=== PATIENT | female | born 1930 ===

== ENCOUNTER 2021-08-21 00:19 | Day surgery (SDC) | payer MEDICARE, OTHER ==
[~2021-08-21 00:19] MED LIST: ALBU2.5V5 INH; AMLO5 PO; ASPI81CH PO; BUSPIRONE HCL7.5 M1 PO; FERSU300 PO; IPRAT-ALBUT 0.5-3 ML INH; SPIR25 PO
== END 2021-08-21 12:07 | disposition home or self-care (01) ==
LOC: ATC 00:19
DX: D50.9 Iron deficiency anemia, unspecified (principal); Z88.8 Allergy status to other drugs, medicaments and biological substances
CPT/HCPCS: 96365; J2916

== ENCOUNTER 2021-09-04 00:30 | Day surgery (SDC) | payer MEDICARE, OTHER | END 2021-09-04 11:53 | disposition home or self-care (01) | LOC: ATC 00:30 | DX: D50.9 Iron deficiency anemia, unspecified (principal); F17.210 Nicotine dependence, cigarettes, uncomplicated; J44.9 Chronic obstructive pulmonary disease, unspecified; K21.9 Gastro-esophageal reflux disease without esophagitis; E78.5 Hyperlipidemia, unspecified; I10 Essential (primary) hypertension; Z86.12 Personal history of poliomyelitis; Z88.0 Allergy status to penicillin; Z88.7 Allergy status to serum and vaccine; Z88.8 Allergy status to other drugs, medicaments and biological substances; Z91.81 History of falling | CPT/HCPCS: 96365; J2916 ==

== ENCOUNTER 2021-09-18 00:52 | Day surgery (SDC) | payer MEDICARE, OTHER | END 2021-09-18 11:49 | disposition home or self-care (01) | LOC: ATC 00:52 | DX: D50.9 Iron deficiency anemia, unspecified (principal); F17.210 Nicotine dependence, cigarettes, uncomplicated; J44.9 Chronic obstructive pulmonary disease, unspecified; K21.9 Gastro-esophageal reflux disease without esophagitis; E78.5 Hyperlipidemia, unspecified; I10 Essential (primary) hypertension; Z86.12 Personal history of poliomyelitis; Z88.0 Allergy status to penicillin; Z88.7 Allergy status to serum and vaccine; Z88.8 Allergy status to other drugs, medicaments and biological substances | CPT/HCPCS: 96365; J2916 ==

== ENCOUNTER 2021-10-02 01:33 | Day surgery (SDC) | payer MEDICARE, OTHER | END 2021-10-02 11:55 | disposition home or self-care (01) | LOC: ATC 01:33 | DX: D50.9 Iron deficiency anemia, unspecified (principal); Z88.8 Allergy status to other drugs, medicaments and biological substances; Z79.82 Long term (current) use of aspirin; Z88.0 Allergy status to penicillin; Z88.6 Allergy status to analgesic agent | CPT/HCPCS: 96365; J2916 ==

== ENCOUNTER 2022-01-26 03:33 | Day surgery (SDC) | payer MEDICARE, OTHER | END 2022-01-26 11:50 | disposition home or self-care (01) | LOC: ATC 03:33 | DX: D50.9 Iron deficiency anemia, unspecified (principal); I10 Essential (primary) hypertension; E78.5 Hyperlipidemia, unspecified; J44.9 Chronic obstructive pulmonary disease, unspecified; R73.03 Prediabetes; K21.9 Gastro-esophageal reflux disease without esophagitis; F17.200 Nicotine dependence, unspecified, uncomplicated; Z88.0 Allergy status to penicillin; Z79.82 Long term (current) use of aspirin; Z79.899 Other long term (current) drug therapy | CPT/HCPCS: 96365; J2916 ==

== ENCOUNTER 2022-02-05 02:47 | Day surgery (SDC) | payer MEDICARE, OTHER | END 2022-02-05 11:39 | disposition home or self-care (01) | LOC: ATC 02:47 | DX: D50.9 Iron deficiency anemia, unspecified (principal); J44.9 Chronic obstructive pulmonary disease, unspecified; I10 Essential (primary) hypertension; K21.9 Gastro-esophageal reflux disease without esophagitis; R73.03 Prediabetes; Z88.0 Allergy status to penicillin; Z88.8 Allergy status to other drugs, medicaments and biological substances; Z79.899 Other long term (current) drug therapy | CPT/HCPCS: 96365; J2916 ==

== ENCOUNTER 2022-02-12 00:10 | Day surgery (SDC) | payer MEDICARE, OTHER | END 2022-02-12 11:41 | disposition home or self-care (01) | LOC: ATC 00:10 | DX: D50.9 Iron deficiency anemia, unspecified (principal) | CPT/HCPCS: 96365; J2916 ==

== ENCOUNTER 2022-02-19 00:17 | Day surgery (SDC) | payer MEDICARE, OTHER | END 2022-02-19 11:46 | disposition home or self-care (01) | LOC: ATC 00:17 | DX: D50.9 Iron deficiency anemia, unspecified (principal); I10 Essential (primary) hypertension; J44.9 Chronic obstructive pulmonary disease, unspecified; R73.03 Prediabetes; Z88.0 Allergy status to penicillin; Z88.8 Allergy status to other drugs, medicaments and biological substances; Z79.82 Long term (current) use of aspirin; Z79.899 Other long term (current) drug therapy | CPT/HCPCS: 96365; J2916 ==

== ENCOUNTER 2022-02-26 01:28 | Day surgery (SDC) | payer MEDICARE, OTHER | END 2022-02-26 11:50 | disposition home or self-care (01) | LOC: ATC 01:28 | DX: D50.9 Iron deficiency anemia, unspecified (principal); I10 Essential (primary) hypertension; R73.03 Prediabetes; Z88.0 Allergy status to penicillin; Z88.8 Allergy status to other drugs, medicaments and biological substances; Z79.899 Other long term (current) drug therapy | CPT/HCPCS: 96365; J2916 ==

== ENCOUNTER 2022-04-02 10:03 | Day surgery (SDC) | payer MEDICARE, OTHER ==
--- NOTE | 2022-03-19 11:52 | NUR ---
Pt did not show for her appointment. Called pt's house phone and her neighbor who takes all of her phone calls because she cannot hear answered her phone. Cynthia has been ill with covid. She has an appointment with her PCP next Wednesday and she will call to make an appointment for Cynthia's iron infusions after that PCP appointment.
== END 2022-04-02 11:40 | disposition home or self-care (01) ==
LOC: ATC 10:03
DX: D50.9 Iron deficiency anemia, unspecified (principal); F41.9 Anxiety disorder, unspecified; M81.0 Age-related osteoporosis without current pathological fracture; J44.9 Chronic obstructive pulmonary disease, unspecified; F17.200 Nicotine dependence, unspecified, uncomplicated; I10 Essential (primary) hypertension
CPT/HCPCS: J2916

== ENCOUNTER → 2022-04-07 | Outpatient (CLI) | payer MEDICARE, OTHER ==
[2022-04-07 16:59] LABS: BASOPHILS ABSOLUTE AUTO 0.12 K/mm3 (0.00-0.23); BASOPHILS PERCENT AUTO 2 % (0-2); EOSINOPHILS ABSOLUTE AUTO 0.08 K/mm3 (0.00-0.68); EOSINOPHILS PERCENT AUTO 1 % (0-6); IMMATURE GRAN ABSOLUTE AUTO 0.04 K/mm3 (0.00-0.10); IMMATURE GRAN PERCENT AUTO 1 % (0-1); LYMPHOCYTES PERCENT AUTO 16 % (21-46); MONOCYTES ABSOLUTE AUTO 0.66 K/mm3 (0.16-1.47); MONOCYTES PERCENT AUTO 8 % (4-13); Mean Corpuscular HGB 27.8 pg (26.0-34.0); Mean Corpuscular HGB Conc 31.7 g/dL (31.5-36.5); Mean Corpuscular Volume 88 fL (80-100); Mean Platelet Volume 9.9 fL (9.1-12.4); NEUTROPHILS ABSOLUTE AUTO 5.71 K/mm3 (1.96-9.15); NEUTROPHILS PERCENT AUTO 72 % (41-73); Platelet Count 410 K/mm3 (150-400); RDW Coefficient Variation 24.1 % (11.7-14.2); RDW Standard Deviation 74.7 fL (35.1-46.3); Red Blood Cell Count 4.68 M/mm3 (3.80-5.20); White Blood Cell Count 7.91 K/mm3 (4.00-11.30)
[2022-04-07 17:16] LABS: Percent Saturation 18.5 % (15.0-50.0)
== END | disposition home or self-care (01) ==
LOC: LAB 13:20 → LAB SHORT 13:20
PROVIDERS: Nurse Practitioner Family
DX: D50.9 Iron deficiency anemia, unspecified (principal)
CPT/HCPCS: 82728; 83540; 83550; 85025

== ENCOUNTER 2022-04-09 03:21 | Day surgery (SDC) | payer MEDICARE, OTHER | END 2022-04-09 11:21 | disposition home or self-care (01) | LOC: ATC 03:21 | DX: D50.9 Iron deficiency anemia, unspecified (principal); I10 Essential (primary) hypertension; J44.9 Chronic obstructive pulmonary disease, unspecified; F17.210 Nicotine dependence, cigarettes, uncomplicated; Z88.8 Allergy status to other drugs, medicaments and biological substances; Z88.0 Allergy status to penicillin; Z88.7 Allergy status to serum and vaccine; Z79.82 Long term (current) use of aspirin | CPT/HCPCS: 96365; J2916 ==